=== PATIENT | male | born 1985 | race African-American/Black ===

== ENCOUNTER 2018-11-06 22:30 | Emergency (ER) | payer MEDICARE, OTHER ==
[~2018-11-06] VITALS: Ht 167.6 cm; Wt 61.2 kg
--- NOTE | 2018-11-06 23:09 | RAD ---
EXAM: Chest, single view. HISTORY: Chest pain. COMPARISON: None. FINDINGS: A frontal view of the chest obtained. There is no infiltrate, pleural effusion or pneumothorax. The heart is normal in size. There are fixation screws traversing a chronic glenoid fracture. IMPRESSION: No acute pulmonary finding. Electronically signed by: Jackie Ashby MD (11/06/2018 11:06 PM) [facility]
[2018-11-06 23:28] LABS: BARBITURATES NEG (NEG); BENZODIAZEPINES NEG (NEG); CANNABINOIDS POS (NEG); COCAINE POS (NEG); METHADONE NEG (NEG); OPIATES NEG (NEG); PHENCYCLIDINE POS (NEG)
[2018-11-06 23:29] LABS: AMPHETAMINE/METHAMPHETAMINE NEG (NEG)
[2018-11-06 23:35] VITALS: BP 102/59
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
--- NOTE | 2018-11-07 06:50 | EKG ---
[facility] [address] [place] [address] Test Date: 2018-11-06 Test Time: 22:38:18 Pat Name: MICHAEL CENTENO Department: Room: Gender: M Athletic Coach: : 1985 Requested By: MAYELA ARANGO Order Number: [id number] Reading MD: Measurements Intervals [place] Rate: 84 P: 66 [place]: 166 QRS: 52 QRSD: 90 T: 68 QT: 344 QTc: 409 Interpretive Statements SINUS RHYTHM NON SPECIFIC ST-T ABNORMALITY (ELEVATION) OTHERWISE NORMAL ECG No previous ECG available for comparison
== END 2018-11-07 00:40 | disposition home or self-care (01) ==
LOC: ER 22:30
DX: R07.89 Other chest pain (principal); F19.10 Other psychoactive substance abuse, uncomplicated; M25.512 Pain in left shoulder
CPT/HCPCS: 36415; 71045; 80307; 84484; 93005; 99285-25

== ENCOUNTER 2019-10-29 11:01 | Emergency (ER) | payer SELFPAY ==
[2018-11-13 22:24] VITALS: BP 117/87
[~2019-10-29] VITALS: Ht 165.1 cm; Wt 65.0 kg
[2019-10-29] MEDS ORDERED: HYDR-3164 PO (11:19)
[2019-10-29] MEDS ORDERED: ORPH100T PO (11:19)
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
== END 2019-10-29 11:22 | disposition home or self-care (01) ==
LOC: ER 11:01
DX: G89.29 Other chronic pain (principal); M79.602 Pain in left arm
CPT/HCPCS: 99283

== ENCOUNTER 2019-12-11 09:28 | Emergency (ER) | payer SELFPAY ==
[~2019-12-11] VITALS: Ht 165.1 cm; Wt 65.9 kg
[~2019-12-11 09:28] MED LIST: HYDR-3164 PO; ORPH100T PO
[2019-12-11 10:17] VITALS: BP 109/70
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
--- NOTE | 2019-12-11 11:52 | RAD ---
CT HEAD AND CERVICAL SPINE WO History: Pain. Reason: trauma fall loc Comparison: None. Technique: Noncontrast CT imaging was performed of the head and cervical spine. Coronal and sagittal reconstructions were performed. Exposure: One or more of the following individualized dose reduction techniques were utilized for this examination: 1. Automated exposure control 2. Adjustment of the mA and/or kV according to patient size 3. Use of iterative reconstruction technique. Findings: Head CT: No intracranial hemorrhage. No mass effect. No hydrocephalus. Extra-axial spaces are unremarkable. Imaged orbits are unremarkable. Imaged paranasal sinuses and mastoid air cells are clear. No acute calvarial fracture. Cervical spine CT: Normal vertebral body height and alignment. No fracture. Mild multilevel degenerative disc changes most prominent C4-C5 and C5-C6. No high-grade canal or neuroforaminal narrowing. Posttraumatic deformity of the left first and second posterior ribs. Soft tissues unremarkable. Impression: Head CT: 1. No acute intracranial abnormality. Cervical spine CT: 1. No acute fracture or subluxation of the cervical spine. 2. Multilevel cervical spondylosis. Electronically signed by: Jung Davis DO (12/11/2019 11:49 AM) [id number]
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
== END 2019-12-11 13:14 | disposition home or self-care (01) ==
LOC: ER 09:28
DX: M25.512 Pain in left shoulder (principal); R56.9 Unspecified convulsions; M54.2 Cervicalgia; F17.200 Nicotine dependence, unspecified, uncomplicated; Z98.890 Other specified postprocedural states
CPT/HCPCS: 70450; 72125; 73030; 99285

== ENCOUNTER 2020-01-01 13:00 | Emergency (ER) | payer SELFPAY ==
[~2020-01-01] VITALS: Ht 165.1 cm; Wt 65.0 kg
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
[2020-01-01] MEDS ORDERED: BACITRACIN TOPICAL OINT PACKET. TP ONE (14:15)
[2020-01-01] MEDS ORDERED: DIPH,PERTUSS(ACELL),TET VAC/PF 0.5 ML SYRINGE. VAX IM ONE (14:15)
[2020-01-01] MEDS ORDERED: KETOROLAC 60 MG/2 ML VIAL. IM ONE (14:15)
--- NOTE | 2020-01-01 14:58 | RAD ---
PROCEDURE: HAND RIGHT 3V STUDY DATE: 01/01/2020 CLINICAL INDICATION / HISTORY: Reason: RING FINGER MIP AREA PAIN, ABCESS, RECENT INJURY / Spl. Instructions: / History: . TECHNIQUE: PA, lateral and oblique views of the right hand. COMPARISON: None FINDINGS: No fracture or dislocation is identified. The bone density is normal. The joint spaces are maintained, and there are no erosions to suggest an inflammatory arthropathy. The soft tissues are unremarkable. IMPRESSION: No acute osseous abnormality. Electronically signed by: Donny Chen MD (01/01/2020 2:55 PM) [id number]
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
[2020-01-01 15:14] LABS: BASO # 0.1 x10^3/uL (0.0-0.2); BASO % 1 % (0-3); EOS # 0.2 x10^3/uL (0.0-0.7); EOS % 5 % (0-3); HEMATOCRIT 41.7 % (39.0-53.0); HEMOGLOBIN 13.8 g/dL (13.0-17.5); LYMPH # 1.3 x10^3/uL (1.0-4.8); LYMPH % 32 % (24-48); MEAN CORPUSCULAR HEMOGLOBIN 27 pg (25-35); MEAN CORPUSCULAR HGB CONC 33 g/dL (31-37); MEAN CORPUSCULAR VOLUME 82 fL (79-100); MONO # 0.5 x10^3/uL (0.0-1.1); MONO % 13 % (0-9); NEUT % 50 % (31-73); PLATELET COUNT 196 x10^3/uL (140-400); RED BLOOD COUNT 5.07 x10^6/uL (4.30-5.70); RED CELL DISTRIBUTION WIDTH 14.2 % (11.5-14.5)
[2020-01-01 15:25] LABS: CREATININE 1.1 mg/dL (0.7-1.3); GFR 93.9; POTASSIUM 3.8 mmol/L (3.5-5.1)
[2020-01-01 15:31] LABS: ALBUMIN 3.7 g/dL (3.4-5.0); ALBUMIN/GLOBULIN RATIO 1.1 (1.0-1.7); TOTAL BILIRUBIN 0.4 mg/dL (0.2-1.0); TOTAL PROTEIN 7.1 g/dL (6.4-8.2)
[2020-01-01 16:30] VITALS: BP 103/67
[2020-01-01] MEDS ORDERED: IBUP-1007 PO (16:50)
[2020-01-01] MEDS ORDERED: BACI28.34 TP (16:50)
== END 2020-01-01 17:08 | disposition home or self-care (01) ==
LOC: ER 13:00
DX: S00.81XA Abrasion of other part of head, initial encounter (principal); M54.2 Cervicalgia; M79.641 Pain in right hand; F17.200 Nicotine dependence, unspecified, uncomplicated; Z98.890 Other specified postprocedural states; Y08.89XA Assault by other specified means, initial encounter; Y93.89 Activity, other specified; Y92.89 Other specified places as the place of occurrence of the external cause; Y99.8 Other external cause status
CPT/HCPCS: 36415; 70450; 72125; 73130; 80053; 85025; 90471; 90715; 96372; 99285; J1885

== ENCOUNTER 2020-09-15 10:58 | Emergency (ER) | payer OTHER ==
[~2020-09-15] VITALS: Ht 165.1 cm; Wt 65.0 kg
[~2020-09-15 10:58] MED LIST changes: +BACI28.34 TP; +IBUP-1007 PO
[2020-09-15] MEDS ORDERED: ONDANSETRON ODT 4 MG TAB.RAPDIS. PO ONE (11:00)
[2020-09-15] MEDS ORDERED: hydrOXYzine 25 MG TABLET PO ONE (11:00)
[2020-09-15] MEDS ORDERED: CEPH500C PO (12:03)
[2020-09-15] MEDS ORDERED: HYDR25CA PO (12:03)
[2020-09-15] MEDS ORDERED: PERM60CR11 TP (12:03)
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
[2020-09-15 14:51] LABS: BILIRUBIN,URINE NEGATIVE (NEG); CLARITY,URINE TURBID; COLOR,URINE YELLOW; NITRITE,URINE NEGATIVE (NEG); PROTEIN,URINE NEGATIVE (NEG-TRACE)
[2020-09-15 14:57] LABS: BARBITURATES NEG (NEG); BENZODIAZEPINES NEG (NEG); CANNABINOIDS POS (NEG); COCAINE NEG (NEG); METHADONE NEG (NEG); OPIATES NEG (NEG); PHENCYCLIDINE POS (NEG)
[2020-09-15 14:58] LABS: AMPHETAMINE/METHAMPHETAMINE NEG (NEG)
[2020-09-15 14:59] LABS: BACTERIA,URINE 0 /HPF (0-FEW); RBC,URINE OCC /HPF (0-2); WBC,URINE 0 /HPF (0-4)
[2020-09-15 15:00] LABS: AMORPHOUS SEDIMENT,UR PRESENT /HPF
--- NOTE | 2020-09-15 15:49 | EKG ---
[facility] [address] [place] [address] Test Date: 2020-09-15 Test Time: 14:28:41 Pat Name: MICHAEL CENTENO Department: Room: Gender: M Inventory Control Clerk: BIJAL : 1985 Requested By: KWASI AMARO Order Number: [id number] Reading MD: Measurements Intervals [place] Rate: 83 P: 56 DE: 164 QRS: 53 QRSD: 88 T: 62 QT: 330 QTc: 393 Interpretive Statements SINUS RHYTHM CONSIDER RIGHT VENTRICULAR HYPERTROPHY ST & T ABNORMALITY, CONSIDER RECENT INFERIOR MYOCARDIAL OR PERICARDIAL DAMAGE ABNORMAL ECG RI6.02 No previous ECG available for comparison
[2020-09-15 16:15] VITALS: BP 113/65
== END 2020-09-15 16:15 | disposition home or self-care (01) ==
LOC: ER 10:58
DX: S60.562A Insect bite (nonvenomous) of left hand, initial encounter (principal); S60.561A Insect bite (nonvenomous) of right hand, initial encounter; S80.862A Insect bite (nonvenomous), left lower leg, initial encounter; S80.861A Insect bite (nonvenomous), right lower leg, initial encounter; S40.862A Insect bite (nonvenomous) of left upper arm, initial encounter; S40.861A Insect bite (nonvenomous) of right upper arm, initial encounter; F19.10 Other psychoactive substance abuse, uncomplicated; L01.00 Impetigo, unspecified; F17.200 Nicotine dependence, unspecified, uncomplicated; W57.XXXA Bitten or stung by nonvenomous insect and other nonvenomous arthropods, initial encounter; Y93.89 Activity, other specified; Y92.89 Other specified places as the place of occurrence of the external cause; Y99.8 Other external cause status
CPT/HCPCS: 80307; 81001; 93005; 99285-25

== ENCOUNTER 2020-09-15 18:06 | Emergency (ER) | payer OTHER ==
[2020-09-15 16:15] VITALS: BP 113/65
[~2020-09-15 18:06] MED LIST changes: +CEPH500C PO; +HYDR25CA PO; +PERM60CR11 TP
== END 2020-09-15 20:01 | disposition left against medical advice (07) ==
LOC: ER 18:06
DX: R11.2 Nausea with vomiting, unspecified (principal); R19.7 Diarrhea, unspecified; Z53.21 Procedure and treatment not carried out due to patient leaving prior to being seen by health care provider

== ENCOUNTER 2020-09-24 11:30 | Emergency (ER) | payer OTHER ==
[~2020-09-24] VITALS: Ht 165.1 cm; Wt 65.9 kg
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
--- NOTE | 2020-09-24 12:10 | RAD ---
EXAM: Bilateral knees, 3 views. HISTORY: Pain. COMPARISON: None. FINDINGS: 3 views of both knees are obtained. There is no fracture, dislocation or subluxation. There is bilateral prepatellar soft tissue swelling. There is no joint effusion. IMPRESSION: 1. No acute osseous finding. 2. Bilateral prepatellar soft tissue swelling. In the absence of recent trauma to suggest soft tissue hematomas, this is likely due to prepatellar bursitis. Correlate with physical exam findings. Electronically signed by: Jackie Ashby MD (09/24/2020 12:08 PM) [id number]
[2020-09-24] MEDS ORDERED: MUPI22OI2 TP (12:52)
[2020-09-24 13:28] VITALS: BP 118/73
== END 2020-09-24 13:33 | disposition home or self-care (01) ==
LOC: ER 11:30
DX: S80.212A Abrasion, left knee, initial encounter (principal); S80.211A Abrasion, right knee, initial encounter; R55 Syncope and collapse; F17.200 Nicotine dependence, unspecified, uncomplicated; Z98.890 Other specified postprocedural states; F19.10 Other psychoactive substance abuse, uncomplicated; X58.XXXA Exposure to other specified factors, initial encounter; Y93.89 Activity, other specified; Y92.89 Other specified places as the place of occurrence of the external cause; Y99.8 Other external cause status
CPT/HCPCS: 99284; 73562-50

== ENCOUNTER 2020-10-17 11:28 | Emergency (ER) | payer OTHER ==
[~2020-10-17] VITALS: Ht 165.1 cm; Wt 66.0 kg
[~2020-10-17 11:28] MED LIST changes: +MUPI22OI2 TP
[2020-10-17 11:35] VITALS: BP 118/73
[2020-10-17] MEDS ORDERED: PERM60CR11 TP (12:21)
[2020-10-17] MEDS ORDERED: MUPI22OI2 TP (12:21)
[2020-10-17] MEDS ORDERED: CEPH500T PO (12:21)
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
== END 2020-10-17 12:35 | disposition home or self-care (01) ==
LOC: ER 11:28
DX: S80.212A Abrasion, left knee, initial encounter (principal); S80.211A Abrasion, right knee, initial encounter; S60.511A Abrasion of right hand, initial encounter; S60.512A Abrasion of left hand, initial encounter; L08.9 Local infection of the skin and subcutaneous tissue, unspecified; J45.909 Unspecified asthma, uncomplicated; F31.9 Bipolar disorder, unspecified; F20.9 Schizophrenia, unspecified; F17.200 Nicotine dependence, unspecified, uncomplicated; W57.XXXA Bitten or stung by nonvenomous insect and other nonvenomous arthropods, initial encounter; Y93.89 Activity, other specified; Y92.89 Other specified places as the place of occurrence of the external cause; Y99.8 Other external cause status
CPT/HCPCS: 99284

== ENCOUNTER 2020-12-28 11:03 | Emergency (ER) | payer OTHER ==
[~2020-12-28] VITALS: Ht 165.1 cm; Wt 66.0 kg
[~2020-12-28 11:03] MED LIST changes: +CEPH500T PO
[2020-12-28 11:47] LABS: BARBITURATES NEG (NEG); BENZODIAZEPINES NEG (NEG); CANNABINOIDS POS (NEG); COCAINE NEG (NEG); METHADONE NEG (NEG); OPIATES NEG (NEG); PHENCYCLIDINE POS (NEG)
[2020-12-28 11:48] LABS: AMPHETAMINE/METHAMPHETAMINE NEG (NEG)
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
--- NOTE | 2020-12-28 12:18 | RAD ---
PA CHEST AND LEFT RIB SERIES Clinical Indication: Reason: fell, left side ribs pain Comparison: AP chest November 06, 2018. Findings: The cardiomediastinal silhouette is normal. Pulmonary vasculature is normal. The lungs are clear. No pleural effusion or pneumothorax is seen. There is no acute displaced rib fracture. A nondisplaced or subtle rib fracture could be obscured. Th ere are several fixation screws of the glenoid, unchanged. Chronic deformity of left shoulder. IVC fi lter is seen. There are old left posterior lateral or lateral rib fractures involving the fifth and s ixth ribs. IMPRESSION: 1. No acute cardiopulmonary process. 2. No acute displaced rib fracture. Electronically signed by: Adryan Barroso MD (12/28/2020 12:16 PM) [id number]
--- NOTE | 2020-12-28 12:30 | RAD ---
EXAM: AP pelvis DATE: 12/28/2020 11:36 AM INDICATION: Reason: fell, pelvic pain / Spl. Instructions: / History: . COMPARISON: No Prior FINDINGS: Moderate to large volume colonic stool content. No bowel obstruction. Hip joint and SI joints are pre served. No pubic symphysis or SI joint diastases. IMPRESSION: 1. No evidence of acute fracture or dislocation 2. Moderate to large volume colonic stool content. Electronically signed by: Semaj Lew MD (12/28/2020 12:28 PM) [id number]
--- NOTE | 2020-12-28 12:32 | RAD ---
PQRS Compliance Statement: One or more of the following individualized dose reduction techniques were utilized for this examinat ion: 1. Automated exposure control 2. Adjustment of the mA and/or kV according to patient size 3. Use of iterative reconstruction technique CT HEAD AND CERVICAL SPINE WITHOUT CONTRAST History: Reason: fell, head injury, neck pain / Comparison: CT head and cervical spine without contrast January 01, 2020. Procedure: Axial images are obtained of the head from the skull base through the vertex without IV co ntrast. Noncontrast helical CT of the cervical spine was performed. Axial, sagittal, and coronal rec onstructions were obtained. Findings: The ventricles and sulci are normal for the patient's age. No mass-effect, midline shift, hemorrhage or obvious acute infarction is identified. Basilar cistern s are patent. Bone windows demonstrate no significant calvarial abnormality. The visualized paranasal sinuses are clear. Mastoid air cells are well aerated. There is no evidence of acute fracture or acute malalignment of the cervical spine. No significant neural foraminal narrowings identified. There is degenerative endplate spurring in the cervical spine. There are no perched or jumped facets. No high-grade narrowing of the central canal is identified. There are old deformities of the left first and second ribs at the costovertebral join ts. Visualized soft tissues of the neck demonstrate no significant abnormalities. The visualized lung api david are clear. IMPRESSION: 1. No acute intracranial abnormality. 2. No acute fracture of the cervical spine. Electronically signed by: Adryan Barroso MD (12/28/2020 12:30 PM) [id number]
[2020-12-28 12:36] LABS: BILIRUBIN,URINE SMALL (NEG); CLARITY,URINE CLEAR; COLOR,URINE YELLOW
[2020-12-28 12:38] LABS: NITRITE,URINE NEGATIVE (NEG); PROTEIN,URINE TRACE mg/dL (NEG-TRACE)
[2020-12-28 12:39] LABS: BACTERIA,URINE 0 /HPF (0-FEW); RBC,URINE OCC /HPF (0-2); WBC,URINE OCC /HPF (0-4)
[2020-12-28 13:20] VITALS: BP 100/65
== END 2020-12-28 14:00 | disposition home or self-care (01) ==
LOC: ER 11:03
DX: S20.212A Contusion of left front wall of thorax, initial encounter (principal); F19.10 Other psychoactive substance abuse, uncomplicated; R51.9 Headache, unspecified; M54.2 Cervicalgia; R10.2 Pelvic and perineal pain; J45.909 Unspecified asthma, uncomplicated; F31.9 Bipolar disorder, unspecified; F20.9 Schizophrenia, unspecified; W18.39XA Other fall on same level, initial encounter; Y93.89 Activity, other specified; Y92.89 Other specified places as the place of occurrence of the external cause; Y99.8 Other external cause status
CPT/HCPCS: 70450; 71101; 72125; 72170; 80307; 81001; 99285-25

== ENCOUNTER 2021-01-30 09:31 | Emergency (ER) | payer OTHER ==
[~2021-01-30] VITALS: Ht 165.1 cm; Wt 65.0 kg
[2021-01-30 09:32] VITALS: BP 136/63
--- NOTE | 2021-01-30 10:05 | RAD ---
Left hip 2 views with one view pelvis. HISTORY: Left hip pain Single view was taken of the pelvis. Pelvis is intact without osseous abnormality. Right hip is unrem arkable. AP and lateral views were taken of the left hip. There is no fracture or osseous abnormality. IMPRESSION: 1. Negative pelvis. 2. Negative left hip. Electronically signed by: Oneal Rodriguez MD (01/30/2021 10:02 AM) [id number]
--- NOTE | 2021-01-30 10:13 | RAD ---
Examination: CT head and cervical spine without contrast CT HEAD INDICATION: Reason: fall / Spl. Instructions: / History: COMPARISON: None Available. Exposure: One or more of the following individualized dose reduction techniques were utilized for thi s examination: 1. Automated exposure control 2. Adjustment of the mA and/or kV according to patient size 3. Use of iterative reconstruction technique TECHNIQUE: 5 mm contiguous axial images were obtained from the skull base to the vertex in both bone and soft tissue algorithm. FINDINGS: No abnormal attenuation within the brain parenchyma. No evidence of acute intracranial hemorrhage. No extra-axial fluid collections. No mass effect or midline shift. Ventricular size is appropriate. Basal cisterns are patent. No fractures identified.[place]-white differentiation is preserved.Globes and orbits are within normal l imits. Paranasal sinuses and mastoid air cells are clear. CT CERVICAL SPINE INDICATION: Reason: fall / Spl. Instructions: / History: COMPARISON: None Available. Technique: 2.5 mm contiguous axial images were obtained from the skull base through the cervicothorac ic junction in both bone and soft tissue algorithm. Additional sagittal and coronal reconstructions were also performed. FINDINGS: Vertebral body height and alignment are maintained. Cervical lordosis is preserved. The l ateral masses of C1 are aligned upon C2. No fractures identified. The bony canal is patent throughout. No significant degenerative changes are identified. The paraspinous soft tissues are unremarkable. Visualized intracranial contents are unremarkable. L wendy apices are clear. Old deformities identified in the left first and second ribs at costovertebral junction similar to prior exam. IMPRESSION: 1. No acute intracranial findings. 2. No acute fracture of the cervical spine. 3. Old deformities identified in the left first and second ribs at costovertebral junction similar t o prior exam. Electronically signed by: Preston Teresa MD (01/30/2021 10:11 AM) [id number]
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
[2021-01-30] MEDS ORDERED: ACETAMINOPHEN 325 MG TABLET. PO ONE (10:45)
== END 2021-01-30 10:50 | disposition home or self-care (01) ==
LOC: ER 09:31
DX: R51.9 Headache, unspecified (principal); M25.552 Pain in left hip; G89.11 Acute pain due to trauma; R53.1 Weakness; J45.909 Unspecified asthma, uncomplicated; F31.9 Bipolar disorder, unspecified; F20.9 Schizophrenia, unspecified; Z59.0 Homelessness; Z86.73 Personal history of transient ischemic attack (TIA), and cerebral infarction without residual deficits; W18.39XA Other fall on same level, initial encounter; Y93.89 Activity, other specified; Y92.89 Other specified places as the place of occurrence of the external cause; Y99.8 Other external cause status
CPT/HCPCS: 70450; 72125; 73502; 99285-25